=== PATIENT | female | born 1935 | race Hispanic/Latino ===

== ENCOUNTER 2017-06-11 15:40 | Inpatient (IN) | payer MEDICARE ==
--- NOTE | 2017-06-11 16:14 | ED PDOC ---
Arrival/HPI - General Chief Complaint: Weakness/Neurological Deficit Time Seen by Provider: 06/11/17 15:45 Historian: Patient - History of Present Illness Narrative History of Present Illness (Text): 06/11/17 16:16 An 81 year old female, whose past medical history includes dementia, kidney transplant, hypertension, DNI/DNR, was [facility] from [facility] to the emergency department for weakness, poor PO intake, right neck and shoulder pain. Patient is a poor historian. Information is obtained via [facility] records. Patient denies any fever, abdominal pain, chest pain or any other complaints at this time. Symptom Onset: Sudden Symptom Course: Unchanged Activities at Onset: Rest Context: Other (NH) Past Medical History - Provider Review Nursing Documentation Reviewed: Yes - Infectious Disease Hx of Infectious Diseases: None - Cardiac Hx Cardiac Disorders: Yes Hx Circulatory Problems: Yes (CHRONIC ISCHEMIC HEART DISEASE) Hx Hypertension: Yes Hx Peripheral Vascular Disease: Yes - Pulmonary Hx Respiratory Disorders: Yes Other/Comment: SHORTNESS OF BREATH - Neurological Hx Neurological Disorder: No - HEENT Hx HEENT Disorder: Yes Hx Cataracts: Yes - Renal Hx Renal Disorder: Yes (S/P KIDNEY TRANSPLANT) - Endocrine/Metabolic Hx Endocrine Disorders: No - Hematological/Oncological Hx Blood Disorders: No - Integumentary Hx Dermatological Disorder: No - Musculoskeletal/Rheumatological Hx Musculoskeletal Disorders: Yes Hx Gout: Yes Hx Osteoporosis: Yes - Gastrointestinal Hx Gastrointestinal Disorders: No - Genitourinary/Gynecological Hx Genitourinary Disorders: Yes Other/Comment: kidney transplant - Psychiatric Hx Psychophysiologic Disorder: No Hx Substance Use: No - Surgical History Hx Kidney Transplant: Yes - Anesthesia Hx Anesthesia: Yes Hx Anesthesia Reactions: No Hx Malignant Hyperthermia: No Family/Social History - Physician Review Nursing Documentation Reviewed: Yes Family/Social History: No Known Family HX Smoking Status: Never Smoked Hx Alcohol Use: No Hx Substance Use: No Allergies/Home Meds Allergies/Adverse Reactions: Allergies No Known Allergies Allergy (Verified 06/11/17 15:55) Home Medications: Home Meds Medication Instructions Recorded Confirmed Albuterol HFA [Ventolin HFA 90 2 puff INH Q6H PRN 02/15/17 06/11/17 mcg/actuation (8 g)] Ascorbic Acid [Vitamin C] 1 tab PO DAILY 02/15/17 06/11/17 Aspirin [Aspirin EC] 1 tab PO DAILY 02/15/17 06/11/17 Benzonatate [Tessalon Perles] 1 cap PO PRN PRN 02/15/17 06/11/17 Bethanechol [Urecholine] 1 tab PO DAILY 02/15/17 06/11/17 Cholecalciferol [Vitamin D 1000 IU] 1 cap PO BID 02/15/17 06/11/17 Cyclosporine 1 cap PO BID 02/15/17 06/11/17 Ferrous Sulfate [Feosol] 1 tab PO BID 02/15/17 06/11/17 Gabapentin [Neurontin] 2 cap PO HS 02/15/17 06/11/17 Ibandronate Sodium [Boniva] 1 tab PO DAILY 02/15/17 06/11/17 Losartan Potassium 1 tab PO DAILY 02/15/17 06/11/17 Magnesium Hydroxide [Milk Of 30 ml PO HS PRN 02/15/17 06/11/17 Magnesia] Magnesium Oxide [Mag-Ox] 1 tab PO DAILY 02/15/17 06/11/17 Metoprolol Tartrate 1 tab PO BID 02/15/17 06/11/17 Multivitamin/Iron/Folic Acid 1 tab PO DAILY 02/15/17 06/11/17 [Centrum Adults Tablet] Mycophenolate Mofetil [Cellcept] 1 tab PO BID 02/15/17 06/11/17 Ondansetron HCl [Zofran] 1 tab PO Q4H PRN 02/15/17 06/11/17 Oxycodone HCl 1 tab PO DAILY PRN 02/15/17 06/11/17 amLODIPine [Norvasc] 1 tab PO DAILY 02/15/17 06/11/17 predniSONE [predniSONE Tab] 1 tab PO DAILY 02/15/17 06/11/17 Review of Systems - Physician Review All systems were reviewed & negative as marked: Yes - Review of Systems Constitutional: Other (weakness). absent: Fevers Cardiovascular: absent: Chest Pain Gastrointestinal: Other (poor PO intake) Musculoskeletal: Neck Pain (right neck and shoulder pain), Other Physical Exam Vital Signs Reviewed: Yes Vital Signs Temp Pulse Resp BP Pulse Ox 06/11/17 20:10 82 20 142/80 98 06/11/17 18:46 97.6 F 86 20 182/107 H 98 06/11/17 15:51 98.9 F 90 24 173/96 H 98 Temperature: Afebrile Blood Pressure: Normal Pulse: Regular Respiratory Rate: Normal Appearance: Positive for: Well-Appearing, Non-Toxic, Comfortable Pain Distress: None Mental Status: Positive for: other (dementia) - Systems Exam Head: Present: Atraumatic, Normocephalic Pupils: Present: PERRL Extroacular Muscles: Present: EOMI Conjunctiva: Present: Normal Mouth: Present: Moist Mucous Membranes Neck: Present: Other (right paracervical tenderness) Respiratory/Chest: Present: Clear to Auscultation, Good Air Exchange. No: Respiratory Distress, Accessory Muscle Use Cardiovascular: Present: Regular Rate and Rhythm, Normal S1, S2. No: Murmurs Abdomen: Present: Normal Bowel Sounds. No: Tenderness, Distention, Peritoneal Signs Back: Present: Normal Inspection Upper Extremity: Present: Normal Inspection. No: Cyanosis, Edema Lower Extremity: Present: Normal Inspection. No: Edema Neurological: Present: GCS=15, CN II-XII Intact, Speech Normal Skin: Present: Warm, Dry, Normal Color. No: Rashes Psychiatric: Present: Alert, Normal Insight, Normal Concentration Medical Decision Making ED Course and Treatment: 06/11/17 16:11 Impression: An 81 year old female with weakness, poor PO intake, right neck and shoulder pain. Plan: -- EKG -- chest xray -- CT head -- CT cervical spine -- Radiology right shoulder -- Urinalysis -- labs -- Tylenol -- Reassess and disposition Progress Notes: 06/11/17 17:19 CT HEAD WITHOUT CONTRAST Creator : Higinio Alfaro IMPRESSION: No evidence of acute intracranial hemorrhage. No evidence of significant interval change in the brain since the previous study dated 05/27/2017. 06/11/17 17:22 CT Cervical Spine without contrast Creator : Higinio Alfaro IMPRESSION: No evidence of acute fracture or destructive bony lesion. Moderate degenerative changes. Mild grade 1 approximately 2 millimeter anterior spondylolisthesis of C4 relative to C5. Enlarged thyroid gland contains multiple nodules. 06/11/17 18:05 CHEST RADIOGRAPH, 1 VIEW Creator : Jeffry Boucher MD IMPRESSION: Left lower lobe infiltrate most likely acute infectious/ inflammatory process. 06/11/17 18:23 Radiographs of the Right Shoulder Creator : Amalia Kumar MD IMPRESSION: No evidence of acute fracture or dislocation. Moderate to severe degenerative changes. Rotator cuff calcified tendinitis. 06/11/17 20:25 EKG: Ordered, reviewed, and independently interpreted the EKG. Rate : 83 BPM Rhythm : NSR Interpretation : incomplete right bundle branch block, nonspecific ST/T wave changes Comparison : No previous EKG for comparison. - Lab Interpretations Lab Results: 06/11/17 16:35 06/11/17 16:35 Lab Results 06/11/17 16:35: Sodium 143, Potassium 4.2, Chloride 110 H, Carbon Dioxide 20 L, Anion Gap 17, BUN 21, Creatinine 0.9, Est GFR ( Amer) > 60, Est GFR (Non- Af Amer) 60, Random Glucose 85, Calcium 10.8 H, Magnesium 1.9, Total Bilirubin 1.0, AST 43 H, ALT 38, Alkaline Phosphatase 64, Lactate Dehydrogenase 598, Total Creatine Kinase 240 H, CK-MB (CK-2) 10.6 H, CK-MB (CK-2) % 4.4 H, Troponin I 0.02, Total Protein 6.9, Albumin 3.9, Globulin 3.1, Albumin/Globulin Ratio 1.3 06/11/17 16:35: PT 13.1 H, INR 1.15 H, APTT 30.6 06/11/17 16:35: WBC 14.9 H, RBC 3.87, Hgb 12.0, Hct 37.7, MCV 97.4, MCH 31.0, MCHC 31.8, RDW 14.4, Plt Count 322, MPV 10.8, Gran % 90.1 H, Lymph % (Auto) 4.4 L, Dent % (Auto) 5.3, Eos % (Auto) 0.1 L, Baso % (Auto) 0.1, Gran # 13.44 H, Lymph # (Auto) 0.7 L, Dent # (Auto) 0.8 H, Eos # (Auto) 0.0, Baso # (Auto) 0.02 , Neutrophils % (Manual) 95 H, Lymphocytes % (Manual) 2 L, Monocytes % (Manual) 3, Platelet Evaluation Normal I have reviewed the lab results: Yes - RAD Interpretation Radiology Orders: 06/11/17 16:04 CHEST ONE VIEW [RAD] Stat 06/11/17 16:05 CERVICAL SPINE W/O CONTRAST [CT] Stat HEAD W/O CONTRAST [CT] Stat 06/11/17 16:06 SHOULDER RIGHT [RAD] Stat - EKG Interpretation Interpreted by ED Physician: Yes Type: 12 lead EKG - Medication Orders Current Medication Orders: Amlodipine Besylate (Norvasc) 2.5 mg PO DAILY TIGIST Aspirin (Ecotrin) 325 mg PO DAILY TIGIST Clonidine HCl (Catapres) 0.1 mg PO BID TIGIST Cyclosporine (Sandimmune) 100 mg PO BID TIGIST Gabapentin (Neurontin) 200 mg PO HS TIGIST PRN Reason: Protocol Ceftriaxone Sodium (Rocephin 1 Gram Ivpb) 1 gm in 100 mls @ 100 mls/hr IVPB DAILY TIGIST PRN Reason: Protocol Azithromycin (Zithromax 500mg In Ns) 500 mg in 250 mls @ 167 mls/hr IVPB DAILY TIGIST PRN Reason: Protocol Levalbuterol HCl (Xopenex) 0.63 mg IH Q6H TIGIST Losartan Potassium (Cozaar) 25 mg PO DAILY TIGIST Magnesium Oxide (Mag-Ox) 400 mg PO DAILY TIGIST Metoprolol Tartrate (Lopressor) 25 mg PO BID TIGIST Discontinued Medications Acetaminophen (Tylenol 325mg Tab) 650 mg PO STAT STA Stop: 06/11/17 16:06 Last Admin: 06/11/17 16:41 Dose: 650 mg MAR Pain/Vitals Document 06/11/17 16:41 LA (Rec: 06/11/17 16:42 LA [id number]) Pain Reassessment Is This A Pain ReAssessment? No Sleep Is patient sleeping during reassessment? No Presence of Pain Presence of Pain Yes Pain Scale Used Pain Scale Used Numeric Location Pain Location Body Site Neck Vancomycin HCl 2 gm/ Sodium (Chloride) 500 mls @ 170 mls/hr IVPB ONCE ONE PRN Reason: Protocol Stop: 06/11/17 20:38 Last Admin: 06/11/17 19:47 Dose: 170 mls/hr eMAR Start Stop Document 06/11/17 19:47 LA (Rec: 06/11/17 19:47 LA [id number]) Intravenous Solution Start Date 06/11/17 Start Time 19:47 Piperacillin Sod/Tazobactam Sod (Zosyn 3.375 In Ns 100ml) 100 mls @ 200 mls/hr IVPB STAT STA PRN Reason: Protocol Stop: 06/11/17 18:11 Last Admin: 06/11/17 18:43 Dose: 200 mls/hr eMAR Start Stop Document 06/11/17 18:43 LA (Rec: 06/11/17 18:43 LA [id number]) Intravenous Solution Start Date 06/11/17 Start Time 18:43 Sodium Chloride (Sodium Chloride 0.9%) 1,000 mls @ 999 mls/hr IV .Q1H1M STA Stop: 06/11/17 19:15 Last Admin: 06/11/17 18:44 Dose: 999 mls/hr eMAR Start Stop Document 06/11/17 18:44 LA (Rec: 06/11/17 18:44 LA [id number]) Intravenous Solution Start Date 06/11/17 Start Time 18:44 Non-Formulary Medication (Mycophenolate Mofetil [Cellcept]) 1 tab PO BID TIGIST - Scribe Statement The provider has reviewed the documentation as recorded by the Ayesha Rios Provider Scribe Attestation: All medical record entries made by the Joeibenrrique were at my direction and personally dictated by me. I have reviewed the chart and agree that the record accurately reflects my personal performance of the history, physical exam, medical decision making, and the department course for this patient. I have also personally directed, reviewed, and agree with the discharge instructions and disposition. Disposition/Present on Arrival - Present on Arrival Any Indicators Present on Arrival: No History of DVT/PE: No History of Uncontrolled Diabetes: No Urinary Catheter: No History of Decub. Ulcer: No History Surgical Site Infection Following: None - Disposition Have Diagnosis and Disposition been Completed?: Yes Diagnosis: Pneumonia, Leukocytosis Disposition: HOSPITALIZED Disposition Time: 08:00 Condition: STABLE
[2017-06-11 16:58] LABS: BASO # 0.02 K/mm3 (0.0-2.0); BASO % 0.1 % (0.0-3.0); EOS % 0.1 % (1.5-5.0); GRAN # 13.44 (1.4-6.5); GRAN % 90.1 % (50.0-68.0); LYMPH # 0.7 (1.2-3.4); LYMPH % 4.4 % (22.0-35.0); MEAN CELL VOLUME 97.4 fl (80.0-105.0); MEAN CORPUSCULAR HGB CONC 31.8 g/dl (31.0-37.0); MEAN PLATELET VOLUME 10.8 fl (7.0-11.0); MONO # 0.8 (0.1-0.6); MONO % 5.3 % (1.0-6.0); PLATELET COUNT 322 10^3/uL (120.0-450.0); RBC 3.87 10^6/uL (3.5-6.1); RED CELL DISTRIBUTION WIDTH 14.4 % (11.5-14.5); WHITE BLOOD COUNT 14.9 10^3/ul (4.5-11.0)
[2017-06-11 16:59] LABS: ALB/GLOB RATIO 1.3 (1.1-1.8); ALBUMIN 3.9 g/dL (3.0-4.8); ALT/SGPT 38 U/L (7-56); AST/SGOT 43 U/L (14-36); BLOOD UREA NITROGEN 21 mg/dL (7-21); CALCIUM 10.8 mg/dL (8.4-10.5); GFR AFRICAN-AMERICAN > 60; GFR NON-AFRICAN AMERICAN 60; MAGNESIUM 1.9 mg/dL (1.7-2.2)
[2017-06-11 17:03] LABS: INR 1.15 (0.93-1.08); PARTIAL THROMBOPLASTIN TIME 30.6 Seconds (25.1-36.5); PROTHROMBIN TIME 13.1 SECONDS (9.4-12.5)
[2017-06-11 17:09] LABS: TROPONIN I 0.02 ng/mL
[2017-06-11 17:16] LABS: CK MB% 4.4 % (2.5-3.0); CK-MB 10.6 ng/mL (0.0-3.6)
[2017-06-11 17:24] LABS: LYMPHOCYTE 2 % (22.0-35.0); MONOCYTE 3 % (1.0-6.0); NEUTROPHIL 95 % (50.0-70.0); PLATELET ESTIMATE NORMAL (NORMAL)
--- NOTE | 2017-06-11 17:24 | CT ---
PROCEDURE: CT HEAD WITHOUT CONTRAST. HISTORY: weakness COMPARISON: Comparison is made with the previous study dated 05/27/2017. TECHNIQUE: Axial computed tomography images were obtained through the head/brain without intravenous contrast. Radiation dose: Total exam DLP = 2341.31 mGy-cm. This CT exam was performed using one or more of the following dose reduction techniques: Automated exposure control, adjustment of the mA and/or kV according to patient size, and/or use of iterative reconstruction technique. FINDINGS: HEMORRHAGE: No intracranial hemorrhage. BRAIN: No mass effect or edema. Mild atrophy is again noted. Moderate chronic microvascular white matter ischemic disease is also again noted. VENTRICLES: Unremarkable. No hydrocephalus. CALVARIUM: Unremarkable. PARANASAL SINUSES: Unremarkable as visualized. No significant inflammatory changes. MASTOID AIR CELLS: Unremarkable as visualized. No inflammatory changes. OTHER FINDINGS: None. IMPRESSION: No evidence of acute intracranial hemorrhage. No evidence of significant interval change in the brain since the previous study dated 05/27/2017.
[2017-06-11] MEDS ORDERED: Vancomycin 2 GM in Sodium Chloride 0.9% 500 ML IVPB ONE (17:42)
[2017-06-11] MEDS ORDERED: Piperacillin/Tazobact 3.375 gm 100 ML IVPB STA (17:42)
--- NOTE | 2017-06-11 17:42 | CT ---
PROCEDURE: CT Cervical Spine without contrast HISTORY: Neck pain COMPARISON: None available. TECHNIQUE: Axial computed tomography images were obtained of the cervical spine without the use of intravenous contrast. Coronal and sagittal reformatted images were created and reviewed. Radiation dose: Total exam DLP = 3 a 0.62 mGy-cm. This CT exam was performed using one or more of the following dose reduction techniques: Automated exposure control, adjustment of the mA and/or kV according to patient size, and/or use of iterative reconstruction technique. FINDINGS: VERTEBRAE: No fracture. Normal alignment. No destructive bony lesion. DISCS/SPINAL CANAL/NEURAL FORAMINA: Moderate degenerative changes are noted associated with mild central canal or neural foraminal stenosis. Moderate to severe narrowing of the disc is spaces noted at the mid and lower cervical spine. PARASPINAL SOFT TISSUES: The thyroid gland is enlarged. There is 2.5 centimeter heterogeneous nodule at the right thyroid lobe. There are bilateral heterogeneous nodules in the thyroid gland suggestive of multinodular goiter. OTHER FINDINGS: None. IMPRESSION: No evidence of acute fracture or destructive bony lesion. Moderate degenerative changes. Mild grade 1 approximately 2 millimeter anterior spondylolisthesis of C4 relative to C5. Enlarged thyroid gland contains multiple nodules.
--- NOTE | 2017-06-11 18:04 | RAD ---
PROCEDURE: CHEST RADIOGRAPH, 1 VIEW HISTORY: weakness COMPARISON: NONE. FINDINGS: LUNGS: Left lower lobe infiltrate, retrocardiac consolidative changes likely pneumonia. PLEURA: No pneumothorax or pleural fluid seen. CARDIOVASCULAR: Cardiomegaly. No evidence of acute, significant cardiovascular disease. OSSEOUS STRUCTURES: No significant abnormalities. VISUALIZED UPPER ABDOMEN: Normal. OTHER FINDINGS: None. IMPRESSION: Left lower lobe infiltrate most likely acute infectious/ inflammatory process.
[2017-06-11] MEDS ORDERED: Sodium Chloride 0.9% 1,000 ML IV STA (18:15)
--- NOTE | 2017-06-11 18:21 | RAD ---
PROCEDURE: Radiographs of the Right Shoulder HISTORY: pain COMPARISON: No prior. FINDINGS: BONES: No evidence of acute displaced fracture. JOINTS: Moderate to severe osteoarthritic changes noted at the AC joint and glenohumeral joint. There is narrowing of the subacromial space. SOFT TISSUES: There is a soft tissue calcification adjacent to the humeral head likely represent calcified tendinitis of the rotator cuff. OTHER FINDINGS: None. IMPRESSION: No evidence of acute fracture or dislocation. Moderate to severe degenerative changes. Rotator cuff calcified tendinitis.
[2017-06-11 23:24] VITALS: BMI 21.2
[2017-06-12] MEDS: Levalbuterol 0.63 MG/3 ML Inhal Soln UD IH SCH ×5 (02:06→20:27)
[2017-06-12 08:32] LABS: HEMOGLOBIN 11.2 g/dL (12.0-16.0); MEAN CELL VOLUME 97.3 fl (80.0-105.0); MEAN CORPUSCULAR HEMOGLOBIN 30.6 pg (25.0-35.0); MEAN CORPUSCULAR HGB CONC 31.5 g/dl (31.0-37.0); RBC 3.66 10^6/uL (3.5-6.1); RED CELL DISTRIBUTION WIDTH 13.9 % (11.5-14.5); WHITE BLOOD COUNT 8.1 10^3/ul (4.5-11.0)
[2017-06-12 09:04] LABS: ALB/GLOB RATIO 1.1 (1.1-1.8); ALBUMIN 3.1 g/dL (3.0-4.8); ALT/SGPT 30 U/L (7-56); AST/SGOT 38 U/L (14-36); BLOOD UREA NITROGEN 18 mg/dL (7-21); GFR AFRICAN-AMERICAN > 60; GFR NON-AFRICAN AMERICAN 60
[2017-06-12] MEDS: Magnesium Oxide 400 mg Tab UD PO SCH (09:16)
[2017-06-12] MEDS: Aspirin 325 mg EC Tablets PO SCH (09:16)
[2017-06-12] MEDS: cefTRIAXone 1 gm 1 GM/100 ML BAG IVPB SCH (09:17)
[2017-06-12] MEDS ORDERED: MYCOPHENOLATE MOFETIL PO SCH (10:00)
[2017-06-12] MEDS: Azithromycin 500MG/NS 250ml 500 MG/250 ML BAG IVPB SCH (10:16)
--- NOTE | 2017-06-12 14:41 | CARD ---
APPROVED REPORT EKG Measurement Heart [id number] <Conclusion> Normal sinus rhythm Incomplete right bundle branch block Left anterior fascicular block Voltage criteria for left ventricular hypertrophy Cannot rule out Septal infarct, age undetermined Abnormal ECG
[2017-06-12 21:12] LABS: URINE BILIRUBIN NEGATIVE (NEGATIVE); URINE BLOOD NEGATIVE (NEGATIVE); URINE GLUCOSE (UA) NEGATIVE (NEGATIVE); URINE LEUKOCYTE ESTERASE NEGATIVE Leu/uL (NEGATIVE); URINE NITRATE NEGATIVE (NEGATIVE); URINE PROTEIN NEGATIVE mg/dL (<30 mg/dL); URINE UROBILINOGEN 0.2 E.U./dL (<1 E.U./dL)
--- NOTE | 2017-06-12 21:14 | PN ---
DATE: SUBJECTIVE: I saw her resting comfortably, out of bed to chair. She is much better. She is talking better. She feels better. She is improving, more alert. MEDICATIONS: She is on Catapres, Cozaar, Ecotrin, Lopressor, magnesium, Neurontin, Norvasc, Rocephin, Sandimmune, Xopenex, Zanaflex, and Zithromax IV. PHYSICAL EXAMINATION: VITAL SIGNS: She has 99.5 temperature, now down to 98.9; pulse 79; 135/75 blood pressure; 20 respiratory rate; 95% O2 sat on room air. HEENT: Head is atraumatic, normocephalic, very much contracted and contorted body position. Mouth is dry. NECK: Supple. HEART: Regular rate. LUNGS: Decreased breath sounds bilaterally. Poor inspiration. ABDOMEN: Soft. EXTREMITIES: Contracted. No edema. LABORATORY DATA: She has 8.1 white count, down from 14.9; hemoglobin 11.2; hematocrit 35.6 with platelets 286. She has 144 sodium, potassium 3.8, BUN 18, creatinine 0.9, GFR is greater than 60, sugar is 72, calcium is 10. Total bilirubin is 0.7, AST is 38, ALT is 30, alkaline phosphatase 48. Troponin is 0.02. Total protein is 6. She has consults with Neurology and Pulmonology. We will check her labs tomorrow, see what physical therapy has to say. A few more days of IV antibiotics will clear the pneumonia and then we will get her back. I believe she is at the [facility]. We will continue with aggressive treatment and care on this young lady who has sepsis, left lower lobe pneumonia, hypertension, and weakness. Jeffry Carrasquillo DO
[2017-06-12 21:31] LABS: URINE APPEARANCE CLEAR (CLEAR); URINE COLOR YELLOW (YELLOW)
--- NOTE | 2017-06-12 23:13 | CON ---
DATE: 06/12/2017 PULMONARY CONSULTATION LOCATION: Room # 372 HISTORY OF PRESENT ILLNESS: Wendy Castelan is an 81-year-old female brought to the emergency room from the [facility] with poor oral intake and pain. She is unable to give any history. The [facility] records are noted on the chart. No other complaints. The patient denies any respiratory complaints whatsoever. There is no cough, chest pain, shortness of breath. In the emergency room, the chest x-ray showed a small left lower lobe infiltrate. The etiology of this is unclear. We do not know if this is old or new. PAST MEDICAL HISTORY: Include many problems including status post kidney transplant and dementia, hypertension. She is DNR/DNI. Past history in addition to above has ischemic heart disease, peripheral vascular disease, kidney transplant as stated above, neuromuscular disease, osteoporosis. SOCIAL HISTORY: There is no smoking history. ALLERGIES: NONE. HOME MEDICATION: Include albuterol alone. No additional pulmonary medications are noted. Prolong history of medications include ascorbic acid, aspirin, benzonatate, Urecholine, vitamin D, cyclosporine, Feosol, Neurontin, Boniva. losartan, metoprolol, Cellcept, Zofran, oxycodone, amlodipine and prednisone. REVIEW OF SYSTEMS: Cannot be obtained at this time due to the patient's inability to communicate. PHYSICAL EXAMINATION: GENERAL: She is comfortable in the chair, communicative. She denies any respiratory complaints. VITAL SIGNS: Show that she is afebrile, pulse 86, respiratory rate 16, blood pressure 140/80, pulse ox 98% on nasal cannula. HEENT: Normocephalic and atraumatic. Pupils PERRLA. EOMs full. Conjunctivae pink. NECK: Supple. No JVD. CHEST: Minimal rhonchi. No wheezes or rales. CARDIOVASCULAR: Regular rhythm, S1 and S2 without murmur, gallops or rubs.. ABDOMEN: Soft, bowel sounds are normoactive, without mass, guarding or rebound and no organomegaly. EXTREMITIES: Reveals no clubbing, cyanosis or edema. There is no Homans' sign NEUROLOGIC: No focal findings. SKIN: No rash or excoriations. UNABLE TO PERFORM A COMPLETE EXAMINATION DUE TO THE PATIENT'S LACK OF COOPERATION. The patient was admitted to the floor for further evaluation and treatment. Chest x-ray shows left lower lobe infiltrate, acute versus chronic inflammatory ?. This may be due to acute infection, but this does not appears to be so, may be due to immunocompromised state, due to immunosuppressive status post renal transplant. It may be chronic. Old films are necessary for comparison. EKG sinus rhythm non specific ST-T wave changes. LABORATORY [place]: [place] [id number], hemoglobin 12, hematocrit 37.7, platelet count 322, sodium 143 potassium 4.2. chloride 110, CO2 20, BUN 21, creatinine 0.9, blood sugar 85, calcium 10.8. CLINICAL IMPRESSION: 1. Immunocompromised state. 2. Left Infiltrate on chest x-ray. Chronic versus new ?. No evidence of acute pulmonary infection. We must try to obtain old chest x-rays performed to evaluate whether this is new or old (acute versus chronic). 3. Bronchospasm in the past, questionable COPD, questionable asthma. PLAN: 1. Continue bronchodilators as started. Try to obtain old x-ray to suggest infectious disease to evaluate. Sed rate will be ordered to look for acute signs of inflammation. We will discuss with the PND, infectious disease, and other consultants as they are called. The patient has already been started on erythromycin and ceftriaxone. She is on Xopenex already and on oral corticosteroids, no need to do further intervention at this time. We will follow closely with you and discuss once the other physicians have seen this patient. Nathanael Lockhart MD
[2017-06-13] MEDS: Levalbuterol 0.63 MG/3 ML Inhal Soln UD IH SCH ×4 (02:40→20:12)
[2017-06-13 08:23] LABS: HEMOGLOBIN 11.7 g/dL (12.0-16.0); MEAN CELL VOLUME 97.1 fl (80.0-105.0); MEAN CORPUSCULAR HEMOGLOBIN 30.5 pg (25.0-35.0); MEAN CORPUSCULAR HGB CONC 31.5 g/dl (31.0-37.0); MEAN PLATELET VOLUME 10.7 fl (7.0-11.0); RBC 3.83 10^6/uL (3.5-6.1); RED CELL DISTRIBUTION WIDTH 13.9 % (11.5-14.5); WHITE BLOOD COUNT 9.9 10^3/ul (4.5-11.0)
[2017-06-13 08:59] LABS: ALB/GLOB RATIO 1.1 (1.1-1.8); ALBUMIN 3.2 g/dL (3.0-4.8); ALT/SGPT 40 U/L (7-56); AST/SGOT 34 U/L (14-36); BLOOD UREA NITROGEN 19 mg/dL (7-21); CALCIUM 10.1 mg/dL (8.4-10.5); GFR AFRICAN-AMERICAN > 60; GFR NON-AFRICAN AMERICAN 60
[2017-06-13] MEDS: Aspirin 325 mg EC Tablets PO SCH (10:05)
[2017-06-13] MEDS: cefTRIAXone 1 gm 1 GM/100 ML BAG IVPB SCH (10:05)
[2017-06-13] MEDS: Azithromycin 500MG/NS 250ml 500 MG/250 ML BAG IVPB SCH (10:06)
[2017-06-13] MEDS: Magnesium Oxide 400 mg Tab UD PO SCH (10:08)
--- NOTE | 2017-06-13 11:37 | PN ---
DATE: 06/13/2017 PULMONARY PROGRESS NOTE SUBJECTIVE: The patient's clinical status is unchanged. The patient is resting comfortably in bed. No respiratory distress is noted. PHYSICAL EXAMINATION: GENERAL: The patient is comfortable. VITAL SIGNS: Stable, afebrile, blood pressure 130/70, heart rate 70, respiratory rate 16 to 18. NECK: Supple. No JVD. No lymphadenopathy. RESPIRATORY: Breath sounds, minimal rhonchi. ABDOMEN: Soft. Bowel sounds normoactive without mass, guarding or rebound. No organomegaly. EXTREMITIES: Reveal no clubbing, cyanosis or edema. NEUROLOGIC: No changes noted. LABORATORY DATA: No new laboratory studies are available this morning. CLINICAL IMPRESSION: 1. Immunocompromised state. 2. Left infiltrate on chest x-ray, chronic versus new? (I was unable to obtain old films with which to compare. I will need to discuss with primary medical doctor and Oncology. 3. Bronchospasm, resolved. PLAN: Followup chest x-ray in 1 to 2 days. Discuss with PMD. Suggest Infectious Disease to see this patient. As yet, there are no notes on the chart since mine of yesterday. I would do a chest x-ray in the morning to make sure that there is no exacerbation of infiltrates. We will be happy to follow with you. I would discuss this case with Dr. Damon, who will take over in the morning. He will monitor closely and decide whether further intervention is required. Thank you for the opportunity to see this patient and we will follow closely with you. Nathanael Lockhart MD
--- NOTE | 2017-06-14 03:18 | CON ---
DATE: HISTORY OF PRESENT ILLNESS: This is an 81-year-old white female with a past medical history of dementia, kidney transplant, and hypertension, came from the long term. The patient has a poor intake, poor historian, keeps the eyes closed, but follows simple commands. PAST MEDICAL HISTORY: As above. Dementia, kidney transplant, hypertension. ALLERGIES: NO KNOWN DRUG ALLERGY. REVIEW OF SYSTEMS: A 10-point review of system was negative. PHYSICAL EXAMINATION: HEENT: Normocephalic and atraumatic. NECK: Supple. NEUROLOGIC: Awake, not oriented to the place, still thinks she is at home. Keeps the right eye closed. No facial asymmetry. Tongue midline. Spontaneous movement of the upper extremities noted with limited movement of the lower extremities. Deep tendon reflexes 1+. Both plantars are downgoing. Right foot drop. Cerebellar gait deferred. IMPRESSION AND PLAN: Encephalopathy superimposed on dementia, kidney transplant. CAT scan of the head was done, which was reported negative, and CAT scan of the cervical spine shows spondylolisthesis. Continue present management. We will follow up. Rolando Soto MD
[2017-06-14 06:31] LABS: HEMOGLOBIN 13.1 g/dL (12.0-16.0); MEAN CELL VOLUME 95.8 fl (80.0-105.0); MEAN CORPUSCULAR HEMOGLOBIN 30.9 pg (25.0-35.0); MEAN CORPUSCULAR HGB CONC 32.3 g/dl (31.0-37.0); MEAN PLATELET VOLUME 10.7 fl (7.0-11.0); RBC 4.24 10^6/uL (3.5-6.1); RED CELL DISTRIBUTION WIDTH 13.8 % (11.5-14.5); WHITE BLOOD COUNT 11.3 10^3/ul (4.5-11.0)
[2017-06-14 06:41] LABS: ALB/GLOB RATIO 1.1 (1.1-1.8); ALBUMIN 3.4 g/dL (3.0-4.8); ALT/SGPT 36 U/L (7-56); AST/SGOT 29 U/L (14-36); BLOOD UREA NITROGEN 16 mg/dL (7-21); CALCIUM 10.3 mg/dL (8.4-10.5); GFR AFRICAN-AMERICAN > 60; GFR NON-AFRICAN AMERICAN > 60
[2017-06-14] MEDS: Levalbuterol 0.63 MG/3 ML Inhal Soln UD IH SCH ×3 (08:27→21:13)
--- NOTE | 2017-06-14 10:25 | PN ---
DATE: 06/14/2017 PULMONARY NOTE SUBJECTIVE: The patient appears comfortable this morning. She is not short of breath at rest. PHYSICAL EXAMINATION VITAL SIGNS: Temperature 98.5, pulse 82, respirations 18/20, blood pressure 165/90. Oxygen saturation on room air is 94%. HEENT: Normocephalic, atraumatic. No JVD. CARDIOVASCULAR: Positive S1, S2. No S3 gallop. LUNGS: Crackles noted at the left base. Minimal rhonchi. No wheezing. EXTREMITIES: Positive for mild edema. No cyanosis, no clubbing. Calves are nontender to palpation. GI: Abdomen is soft, nontender and nondistended. Bowel sounds are positive. SKIN: No acute rash. NEUROLOGIC: Limited at the present time. PERTINENT LABORATORY DATA: Chest x-ray was done early this morning and reviewed. The left lower lobe infiltrate appears less dense compared to the film of 06/11/2017. IMPRESSION: 1. Left lower lobe pneumonia. 2. Mild bronchospasm. 3. Hypertension. 4. Dementia. 5. Kidney transplant in the past. PLAN: The patient appears comfortable this morning. She is not short of breath at rest. She does state to feeling much better overall. On physical exam, there is no significant bronchospasm noted. I will continue the current nebulizer treatments for now. I did review the last chest x-ray done - this morning. The left lower lobe infiltrate is improved and appears less dense. I would continue the current antibiotic therapy for now. The temperatures have now fully resolved. I will also order aspiration precautions. Clinical status of the patient is certainly improved - compared to the initial presentation. However, the patient's overall status/prognosis does remain guarded. I will discuss the above with Dr. Carrasquillo. Peter Damon MD CODY
--- NOTE | 2017-06-14 10:38 | PN ---
DATE: 06/13/2017 SUBJECTIVE: I saw her sitting in bed, uncomfortable. She is having neck discomfort and some shortness of breath. She is on oxygen, not that hungry this morning. OBJECTIVE VITAL SIGNS: She has 97.5 temperature, 70 pulse, 170/80 blood pressure, 18 respiratory rate, 97% O2 sat on 2 liters. HEENT: Head is atraumatic, normocephalic. NECK: Painful. She is in an increased kyphotic neck with her face looking at her chest. HEART: Regular rate. LUNGS: Decreased breath sounds bilaterally. ABDOMEN: Soft. EXTREMITIES: Contracted, no edema. She is on Catapres, Cozaar, Ecotrin, Lopressor, magnesium oxide, Neurontin, Norvasc, Rocephin, , Xopenex, Zanaflex and Zithromax. DATA: She has a 9.9 white count, 11.7 hemoglobin, 37.2 hematocrit, 290,000 platelets. Sodium 142, potassium 3.8, BUN is 19, creatinine 0.9. GFR is greater than 60. Sugar is 85. Calcium is 7.1, total bili is 0.6, AST is 34, ALT is 40, alkaline phosphatase 66, total protein 6.1. No growth. I am waiting for Neurology to see her for his opinion of her neck. I will continue with aggressive pulmonary care and if everything goes well, discharge her back to tomorrow. Continue aggressive treatment and care and have to see her for severe neck pain, pneumonia, hypertension and she is quite weak. Jeffry Carrasquillo DO MTDD
--- NOTE | 2017-06-14 10:43 | RAD ---
HISTORY: BELOW COMPARISON: 06/11/2017 FINDINGS: LUNGS: No change in left sided infiltrate PLEURA: No significant pleural effusion identified, no pneumothorax apparent. CARDIOVASCULAR: Mild cardiomegaly OSSEOUS STRUCTURES: No significant abnormalities. VISUALIZED UPPER ABDOMEN: Normal. OTHER FINDINGS: None. IMPRESSION: No change in left lower lobe infiltrate
[2017-06-14] MEDS: Aspirin 325 mg EC Tablets PO SCH (11:41)
[2017-06-14] MEDS: Magnesium Oxide 400 mg Tab UD PO SCH (11:42)
[2017-06-14] MEDS: Azithromycin 500MG/NS 250ml 500 MG/250 ML BAG IVPB SCH (11:43)
--- NOTE | 2017-06-14 12:54 | PN ---
DATE: SUBJECTIVE: I saw her sitting in bed. She is nauseous this morning, could not eat well, but did not throw up. She is taking the liquids. She also wants to get out of bed to chair. I will try and get that arranged, talking better. She is on Catapres, Cozaar, Ecotrin, Lopressor, magnesium oxide, Neurontin, Norvasc, Rocephin IV, Sandimmune, Xopenex, Zanaflex, Zithromax and Zofran for the nauseousness. PHYSICAL EXAMINATION: VITAL SIGNS: She has a 98.5 temp, 82 pulse, 165/90 blood pressure, 20 respiratory rate, 94% O2 sat on room air. HEENT: Head is atraumatic, normocephalic. NECK: Increased kyphotic position. HEART: Regular rate. LUNGS: Decreased breath sounds bilaterally. ABDOMEN: Soft. Positive bowel sounds. EXTREMITIES: Mildly contracted. No edema. We are trying to get her out of bed to chair. LABORATORY DATA: She has 11.3 white count, it went up a little bit; 30.1 hemoglobin, 40.6 hematocrit with 285 platelets. 142 sodium, potassium 4.4, BUN 16, creatinine 0.8, GFR is greater than 60, sugar is 80, calcium is 10.3, total bili is 0.8, AST is 29, ALT is 36, alk phos 77, total protein 6.6. She is going for a chest x-ray today, waiting for the results. She is on IV antibiotics. She is being seen by Pulmonary and Neurology. Neurology felt it was encephalopathy. Hopefully, the chest x-ray will improve. We will give her some Zofran for the nauseousness. get her out of bed to chair. If we get okay from Pulmonary, we will transfer her back. Thank you very much. Jeffry Carrasquillo DO MTDMariela
[2017-06-14] MEDS ORDERED: Naproxen 550 mg Tab PO SCH (13:30)
--- NOTE | 2017-06-14 14:12 | EEG ---
DATE: 06/14/2017 CONDITION OF THE RECORDING: Drowsy. DIAGNOSIS: Altered mental status. MEDICATION: Reviewed by nurse's reconciliation sheet. INTERPRETATION: This is a 16-channel International EEG. The background activity of this tracing was composed of 6 to 7 cycles per second. There was small amount of beta activity of 16 to 20 cycles per second seen during this tracing. There was increased amount of theta activity of 5 to 7 cycles per second seen during this tracing. Drowsiness was characterized by mixed beta and theta activities. The sleep was characterized by vertex transient waves, sleep spindles, and bilateral slowing. Photic stimulation showed no changes in the tracing. No paroxysmal activity is noted in this recording. CONCLUSION: This is an abnormal EEG due to presence of mild diffuse slowing consistent with mild bilateral cerebral dysfunction. No evidence of any epileptiform activity. Please clinically correlate. Rachid Soto MD
[2017-06-14] MEDS ORDERED: Lidocaine 5% Patch TD PRN (14:15)
[2017-06-14] MEDS: cefTRIAXone 1 gm 1 GM/100 ML BAG IVPB SCH (14:18)
--- NOTE | 2017-06-14 14:22 | CP.PCM.PN ---
Addendum entered and electronically signed by Deborah Harris DO 06/14/17 14:49 : EEG: mild bilateral cerebral dysfunction. no seizure Original Note: <Deborah Harris - Last Filed: 06/14/17 14:46> Subjective - Date & Time of Evaluation Date of Evaluation: 06/14/17 Time of Evaluation: 09:00 - Subjective Subjective: Neurology PGY-[address] Soto Pt states that she still has R neck pain and nausea. She has decreased appeptite because of the nausea Objective - Vital Signs/Intake and Output Vital Signs (last 24 hours): Temp Pulse Resp BP Pulse Ox 98.5 F 72 20 165/90 H 94 L 06/14/17 06:00 06/14/17 11:42 06/14/17 06:00 06/14/17 11:42 06/14/17 06:00 Intake and Output: 06/14/17 06/14/17 06:59 18:59 Intake Total 120 Balance 120 - Medications Medications: Current Medications Amlodipine Besylate (Norvasc) 2.5 mg PO DAILY [facility] Last Admin: 06/14/17 11:42 Dose: 2.5 mg Aspirin (Ecotrin) 325 mg PO DAILY [facility] Last Admin: 06/14/17 11:41 Dose: 325 mg Clonidine HCl (Catapres) 0.1 mg PO BID [facility] Last Admin: 06/14/17 11:41 Dose: 0.1 mg Cyclosporine (Sandimmune) 100 mg PO BID [facility] Last Admin: 06/14/17 11:43 Dose: 100 mg Gabapentin (Neurontin) 200 mg PO HS [facility] PRN Reason: Protocol Last Admin: 06/13/17 22:13 Dose: 200 mg Ceftriaxone Sodium (Rocephin 1 Gram Ivpb) 1 gm in 100 mls @ 100 mls/hr IVPB DAILY [facility] PRN Reason: Protocol Stop: 06/16/17 10:59 Last Admin: 06/14/17 14:18 Dose: 100 mls/hr Azithromycin (Zithromax 500mg In Ns) 500 mg in 250 mls @ 167 mls/hr IVPB DAILY [facility] PRN Reason: Protocol Last Admin: 06/14/17 11:43 Dose: 167 mls/hr Levalbuterol HCl (Xopenex) 0.63 mg IH Q6H [facility] Last Admin: 06/14/17 13:28 Dose: 0.63 mg Lidocaine (Lidoderm) 1 ea TD DAILY PRN PRN Reason: Pain, moderate (4-7) Losartan Potassium (Cozaar) 25 mg PO DAILY [facility] Last Admin: 06/14/17 11:42 Dose: 25 mg Magnesium Oxide (Mag-Ox) 400 mg PO DAILY [facility] Last Admin: 06/14/17 11:42 Dose: 400 mg Metoprolol Tartrate (Lopressor) 25 mg PO BID [facility] Last Admin: 06/14/17 11:41 Dose: 25 mg Naproxen (Anaprox Ds) 550 mg PO BID [facility] Last Admin: 06/14/17 13:36 Dose: 550 mg Ondansetron HCl (Zofran Inj) 4 mg IVP Q6H PRN PRN Reason: Nausea/Vomiting Last Admin: 06/14/17 09:49 Dose: 4 mg Tizanidine HCl (Zanaflex) 4 mg PO BID [facility] Last Admin: 06/14/17 11:41 Dose: 4 mg - Labs Labs: 06/14/17 05:45 06/14/17 05:45 PT 13.1 SECONDS (9.4-12.5) H 06/11/17 16:35 INR 1.15 (0.93-1.08) H 06/11/17 16:35 APTT 30.6 Seconds (25.1-36.5) 06/11/17 16:35 - Constitutional Appears: No Acute Distress - Head Exam Head Exam: ATRAUMATIC, NORMAL INSPECTION, NORMOCEPHALIC Additional comments: pt head is rotated to left - Eye Exam Eye Exam: EOMI, Normal appearance, PERRL. absent: Scleral icterus Pupil Exam: NORMAL ACCOMODATION - ENT Exam ENT Exam: Mucous Membranes Moist - Respiratory Exam Respiratory Exam: Clear to Ausculation Bilateral, NORMAL BREATHING PATTERN - Cardiovascular Exam Cardiovascular Exam: REGULAR RHYTHM, +S1, +S2. absent: Murmur - GI/Abdominal Exam GI & Abdominal Exam: Soft. absent: Guarding, Rigid, Tenderness - Extremities Exam Extremities Exam: absent: Calf Tenderness, Pedal Edema - Neurological Exam Neurological Exam: Alert, Awake Additional comments: Awake, oriented to place this AM, not to time Head rotated to L for pain Spontanous moving LUE, LE b/l. RUE motion limited by pain Motor: 3/5 for upper extremities, 3+/5 for lower extremiteis. R foot drop. neg babinski sensory: intact DTR: 1+ Assessment and Plan - Assessment and Plan (Free Text) Plan: Ms Castelan, 81F, from [facility] with PMH dementia, kidney transplant, and HTN c/o weakness, decreased PO intact, neck and shoulder pain. Neurology was consulted for neck weakness. Neck pain is worse on R and pt cannot move her R arm due to pain. CT head showed no acute intracranital hemorrhage, mild atropy, and chronic microvascular white matter ischemic disease. R shoulder x-ray showed severe degenerative changes and rotator cuff calcified tendinitis. Cervical CT showed moderate degenerative changes, mild grade 1 (2mm) anterior spondylolothesis of C4 on C5. Enlarged thyroid with multiple nodules. Torticollis - Continue gabapentin 200 HS - Zanaflex 4 BID - Naproxen 550 BID PRN - Add Lidoderm patch - neck brace as needed -____Pending TSH, Free T4___ to r/o hyperthyroid cause of torticollis s/r/d/w Dr. Soto <Rachid Soto - Last Filed: 06/14/17 14:54> Objective - Vital Signs/Intake and Output Vital Signs (last 24 hours): Temp Pulse Resp BP Pulse Ox 98.5 F 72 20 165/90 H 94 L 06/14/17 06:00 06/14/17 11:42 06/14/17 06:00 06/14/17 11:42 06/14/17 06:00 Intake and Output: 06/14/17 06/14/17 06:59 18:59 Intake Total 120 Balance 120 - Medications Medications: Current Medications Amlodipine Besylate (Norvasc) 2.5 mg PO DAILY [facility] Last Admin: 06/14/17 11:42 Dose: 2.5 mg Aspirin (Ecotrin) 325 mg PO DAILY [facility] Last Admin: 06/14/17 11:41 Dose: 325 mg Clonidine HCl (Catapres) 0.1 mg PO BID [facility] Last Admin: 06/14/17 11:41 Dose: 0.1 mg Cyclosporine (Sandimmune) 100 mg PO BID [facility] Last Admin: 06/14/17 11:43 Dose: 100 mg Gabapentin (Neurontin) 200 mg PO HS [facility] PRN Reason: Protocol Last Admin: 06/13/17 22:13 Dose: 200 mg Ceftriaxone Sodium (Rocephin 1 Gram Ivpb) 1 gm in 100 mls @ 100 mls/hr IVPB DAILY [facility] PRN Reason: Protocol Stop: 06/16/17 10:59 Last Admin: 06/14/17 14:18 Dose: 100 mls/hr Azithromycin (Zithromax 500mg In Ns) 500 mg in 250 mls @ 167 mls/hr IVPB DAILY [facility] PRN Reason: Protocol Last Admin: 06/14/17 11:43 Dose: 167 mls/hr Levalbuterol HCl (Xopenex) 0.63 mg IH Q6H [facility] Last Admin: 06/14/17 13:28 Dose: 0.63 mg Lidocaine (Lidoderm) 1 ea TD DAILY PRN PRN Reason: Pain, moderate (4-7) Losartan Potassium (Cozaar) 25 mg PO DAILY [facility] Last Admin: 06/14/17 11:42 Dose: 25 mg Magnesium Oxide (Mag-Ox) 400 mg PO DAILY [facility] Last Admin: 06/14/17 11:42 Dose: 400 mg Metoprolol Tartrate (Lopressor) 25 mg PO BID [facility] Last Admin: 06/14/17 11:41 Dose: 25 mg Naproxen (Anaprox Ds) 550 mg PO BID PRN PRN Reason: Pain, moderate (4-7) Ondansetron HCl (Zofran Inj) 4 mg IVP Q6H PRN PRN Reason: Nausea/Vomiting Last Admin: 06/14/17 09:49 Dose: 4 mg Tizanidine HCl (Zanaflex) 4 mg PO BID [facility] Last Admin: 06/14/17 11:41 Dose: 4 mg - Labs Labs: 06/14/17 05:45 06/14/17 05:45 PT 13.1 SECONDS (9.4-12.5) H 06/11/17 16:35 INR 1.15 (0.93-1.08) H 06/11/17 16:35 APTT 30.6 Seconds (25.1-36.5) 06/11/17 16:35 Attending/Attestation - Attestation I have personally seen and examined this patient.: Yes I have fully participated in the care of the patient.: Yes I have reviewed all pertinent clinical information, including history, physical exam and plan: Yes
[2017-06-14] MEDS ORDERED: Naproxen 550 mg Tab PO PRN (14:40)
[2017-06-15] MEDS: Levalbuterol 0.63 MG/3 ML Inhal Soln UD IH SCH ×4 (01:31→20:10)
[2017-06-15 07:50] LABS: FREE T4 1.74 ng/dL (0.78-2.19)
--- NOTE | 2017-06-15 10:02 | PN ---
DATE: 06/15/2017 PULMONARY NOTE SUBJECTIVE: The patient appears comfortable this morning. She is not short of breath at rest. PHYSICAL EXAMINATION: VITAL SIGNS: Temperature is 97.3, pulse 57, respiratory rate 18/20, blood pressure 134/70. Oxygen saturation on room air is 93-95%. HEENT: Normocephalic, atraumatic. No JVD. CARDIOVASCULAR: Positive S1, S2. No S3 gallop. LUNGS: Crackles noted at the left base. Minimal/less rhonchi. No wheezing. EXTREMITIES: Positive for mild edema. No cyanosis. No clubbing. Calves are nontender to palpation. GI: Abdomen is soft, nontender and nondistended. Bowel sounds are positive. SKIN: No acute rash. NEUROLOGIC: Limited at the present time. IMPRESSION: 1. Left lower lobe pneumonia. 2. Mild bronchospasm. 3. Hypertension. 4. Dementia. 5. Kidney transplant in the past. PLAN: The patient appears comfortable this morning. She is not short of breath at rest. She does state to feeling much better overall. On physical exam, there is certainly less bronchospasm noted. In addition, there is less alveolar-arterial gradient. I will continue with the current nebulizer treatments and aspiration precautions for now. The patient remains on antibiotic therapy. The temperatures have fully resolved. Repeat a.m. labs are pending. Clinical status of the patient is certainly improved - compared to the initial presentation. However, the future status/prognosis for this chronically ill elderly patient does remain guarded. I will discuss the above with Dr. Carrasquillo. Peter Damon MD CODY
--- NOTE | 2017-06-15 10:43 | CP.PCM.PN ---
<Deborah Harris - Last Filed: 06/15/17 10:44> Subjective - Date & Time of Evaluation Date of Evaluation: 06/15/17 Time of Evaluation: 10:40 - Subjective Subjective: Neurology PGY-[address] Soto Pt states that neck pain subsided from yesterday;s 02/16 to 11/16 today. She is able to move her R arm more than yesterday Objective - Vital Signs/Intake and Output Vital Signs (last 24 hours): Temp Pulse Resp BP Pulse Ox 97.3 F L 57 L 21 134/70 93 L 06/15/17 06:00 06/15/17 06:00 06/15/17 06:00 06/15/17 06:00 06/15/17 06:00 Intake and Output: 06/15/17 06/15/17 06:59 18:59 Intake Total 480 0 Output Total 700 0 Balance -220 0 - Medications Medications: Current Medications Amlodipine Besylate (Norvasc) 2.5 mg PO DAILY [facility] Last Admin: 06/14/17 11:42 Dose: 2.5 mg Aspirin (Ecotrin) 325 mg PO DAILY [facility] Last Admin: 06/14/17 11:41 Dose: 325 mg Clonidine HCl (Catapres) 0.1 mg PO BID [facility] Last Admin: 06/14/17 19:04 Dose: 0.1 mg Cyclosporine (Sandimmune) 100 mg PO BID [facility] Last Admin: 06/14/17 19:04 Dose: 100 mg Gabapentin (Neurontin) 200 mg PO HS [facility] PRN Reason: Protocol Last Admin: 06/14/17 22:00 Dose: 200 mg Ceftriaxone Sodium (Rocephin 1 Gram Ivpb) 1 gm in 100 mls @ 100 mls/hr IVPB DAILY [facility] PRN Reason: Protocol Stop: 06/16/17 10:59 Last Admin: 06/14/17 14:18 Dose: 100 mls/hr Azithromycin (Zithromax 500mg In Ns) 500 mg in 250 mls @ 167 mls/hr IVPB DAILY [facility] PRN Reason: Protocol Last Admin: 06/14/17 11:43 Dose: 167 mls/hr Levalbuterol HCl (Xopenex) 0.63 mg IH Q6H [facility] Last Admin: 06/15/17 07:42 Dose: 0.63 mg Lidocaine (Lidoderm) 1 ea TD DAILY PRN PRN Reason: Pain, moderate (4-7) Last Admin: 06/14/17 19:04 Dose: 1 ea Losartan Potassium (Cozaar) 25 mg PO DAILY [facility] Last Admin: 06/14/17 11:42 Dose: 25 mg Magnesium Oxide (Mag-Ox) 400 mg PO DAILY [facility] Last Admin: 06/14/17 11:42 Dose: 400 mg Metoprolol Tartrate (Lopressor) 25 mg PO BID [facility] Last Admin: 06/14/17 19:05 Dose: 25 mg Naproxen (Anaprox Ds) 550 mg PO BID PRN PRN Reason: Pain, moderate (4-7) Ondansetron HCl (Zofran Inj) 4 mg IVP Q6H PRN PRN Reason: Nausea/Vomiting Last Admin: 06/14/17 09:49 Dose: 4 mg Tizanidine HCl (Zanaflex) 4 mg PO BID [facility] Last Admin: 06/14/17 19:05 Dose: 4 mg - Labs Labs: 06/14/17 05:45 06/14/17 05:45 PT 13.1 SECONDS (9.4-12.5) H 06/11/17 16:35 INR 1.15 (0.93-1.08) H 06/11/17 16:35 APTT 30.6 Seconds (25.1-36.5) 06/11/17 16:35 - Constitutional Appears: No Acute Distress - Head Exam Head Exam: ATRAUMATIC, NORMAL INSPECTION, NORMOCEPHALIC - Eye Exam Eye Exam: EOMI, Normal appearance, PERRL Pupil Exam: NORMAL ACCOMODATION - ENT Exam ENT Exam: Mucous Membranes Moist - Neck Exam Additional comments: supple. Neck rotated L - Respiratory Exam Respiratory Exam: Clear to Ausculation Bilateral, Rhonchi, NORMAL BREATHING PATTERN - Cardiovascular Exam Cardiovascular Exam: REGULAR RHYTHM, +S1, +S2. absent: Murmur - Neurological Exam Neurological Exam: Alert, Awake Additional comments: Awake, oriented to place, not to time Head rotated to L for pain Spontanous moving all extremities. RUE motion limited by pain Motor: 3/5 RUE due to pain; 4/5 for LUE and lower extremiteis. R foot drop. neg babinski sensory: intact DTR: 1+ Assessment and Plan - Assessment and Plan (Free Text) Plan: Ms Castelan, 81F, from [facility] with PMH dementia, kidney transplant, and HTN c/o weakness, decreased PO intact, neck and shoulder pain. Neurology was consulted for neck weakness. Neck pain is worse on R and pt cannot move her R arm due to pain. CT head showed no acute intracranital hemorrhage, mild atropy, and chronic microvascular white matter ischemic disease. R shoulder x-ray showed severe degenerative changes and rotator cuff calcified tendinitis. Cervical CT showed moderate degenerative changes, mild grade 1 (2mm) anterior spondylolothesis of C4 on C5. Enlarged thyroid with multiple nodules. 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 - possible endocrinology consult to r/o cancer? s/r/d/w Dr. Soto <Rachid Soto - Last Filed: 06/15/17 14:49> Objective - Vital Signs/Intake and Output Vital Signs (last 24 hours): Temp Pulse Resp BP Pulse Ox 98 F 94 H 18 137/109 H 96 06/15/17 12:00 06/15/17 12:01 06/15/17 12:00 06/15/17 12:01 06/15/17 12:00 Intake and Output: 06/15/17 06/15/17 06:59 18:59 Intake Total 480 0 Output Total 700 0 Balance -220 0 - Medications Medications: Current Medications Amlodipine Besylate (Norvasc) 2.5 mg PO DAILY [facility] Last Admin: 06/15/17 12:01 Dose: 2.5 mg Aspirin (Ecotrin) 325 mg PO DAILY [facility] Last Admin: 06/15/17 12:01 Dose: 325 mg Clonidine HCl (Catapres) 0.1 mg PO BID [facility] Last Admin: 06/15/17 12:00 Dose: 0.1 mg Cyclosporine (Sandimmune) 100 mg PO BID [facility] Last Admin: 06/15/17 12:00 Dose: 100 mg Gabapentin (Neurontin) 300 mg PO HS [facility] PRN Reason: Protocol Ceftriaxone Sodium (Rocephin 1 Gram Ivpb) 1 gm in 100 mls @ 100 mls/hr IVPB DAILY [facility] PRN Reason: Protocol Stop: 06/16/17 10:59 Last Admin: 06/15/17 12:02 Dose: 100 mls/hr Azithromycin (Zithromax 500mg In Ns) 500 mg in 250 mls @ 167 mls/hr IVPB DAILY [facility] PRN Reason: Protocol Last Admin: 06/15/17 12:03 Dose: 167 mls/hr Levalbuterol HCl (Xopenex) 0.63 mg IH Q6H [facility] Last Admin: 06/15/17 13:49 Dose: 0.63 mg Lidocaine (Lidoderm) 1 ea TD DAILY PRN PRN Reason: Pain, moderate (4-7) Last Admin: 06/14/17 19:04 Dose: 1 ea Losartan Potassium (Cozaar) 25 mg PO DAILY [facility] Last Admin: 06/15/17 12:01 Dose: 25 mg Magnesium Oxide (Mag-Ox) 400 mg PO DAILY [facility] Last Admin: 06/15/17 12:01 Dose: 400 mg Metoprolol Tartrate (Lopressor) 25 mg PO BID [facility] Last Admin: 06/15/17 12:01 Dose: 25 mg Naproxen (Anaprox Ds) 550 mg PO BID PRN PRN Reason: Pain, moderate (4-7) Last Admin: 06/15/17 12:01 Dose: 550 mg Ondansetron HCl (Zofran Inj) 4 mg IVP Q6H PRN PRN Reason: Nausea/Vomiting Last Admin: 06/14/17 09:49 Dose: 4 mg Tizanidine HCl (Zanaflex) 4 mg PO BID [facility] Last Admin: 06/15/17 12:00 Dose: 4 mg - Labs Labs: 06/14/17 05:45 06/14/17 05:45 PT 13.1 SECONDS (9.4-12.5) H 06/11/17 16:35 INR 1.15 (0.93-1.08) H 06/11/17 16:35 APTT 30.6 Seconds (25.1-36.5) 06/11/17 16:35 Attending/Attestation - Attestation I have personally seen and examined this patient.: Yes I have fully participated in the care of the patient.: Yes I have reviewed all pertinent clinical information, including history, physical exam and plan: Yes
[2017-06-15] MEDS: Aspirin 325 mg EC Tablets PO SCH (12:01)
[2017-06-15] MEDS: Magnesium Oxide 400 mg Tab UD PO SCH (12:01)
[2017-06-15] MEDS: cefTRIAXone 1 gm 1 GM/100 ML BAG IVPB SCH (12:02)
[2017-06-15] MEDS: Azithromycin 500MG/NS 250ml 500 MG/250 ML BAG IVPB SCH (12:03)
[2017-06-15] MEDS ORDERED: Sodium Chloride 0.9% 1,000 ML IV SCH (18:30)
[2017-06-15 18:31] VITALS: BP 68/55; PULSE 71
[2017-06-15] MEDS: Sodium Chloride 0.9% 250 ML IV SCH ×2 (18:34→22:00)
[2017-06-15 19:52] VITALS: RESP 16; TEMP 98.4; O2SAT 98
--- NOTE | 2017-06-16 05:36 | DS ---
HISTORY OF PRESENT ILLNESS: I saw her resting comfortably in bed. She is doing a lot better. She started eating. She feels better than yesterday with therapy, but she needs it. She is on Naprosyn, Catapres, Cozaar, Ecotrin, Lidoderm, Lopressor, magnesium oxide, Neurontin, Norvasc, Rocephin, Sandimmune, Xopenex, Zanaflex, azithromycin, Zofran. She is here for pneumonia. I am hoping to get her to [facility] or [facility] or [facility]; probably [facility], she is at [facility]. PHYSICAL EXAMINATION: GENERAL: Very alert, comfortable, better than yesterday. VITAL SIGNS: She has a 97.3 temperature, 87 pulse, 134/70 blood pressure, 92% O2 saturation on room air. HEAD: Atraumatic, normocephalic. HEART: Regular rate. LUNGS: Decreased breath sounds, clear to auscultation. ABDOMEN: Soft. EXTREMITIES: No edema, but she is kind of contorted, and increased kyphosis. LABORATORY DATA: She had 11.3 white count, 13.1 hemoglobin, 40.6 hematocrit, with 285 platelets. Sodium 142, potassium 4.4, BUN 16, creatinine 0.8, GFR is greater than 60, sugar is 80, calcium 10.3, total bili is 0.8. AST is 29, ALT is 36, alk phos 77, total protein is 6.6, TSH is 0.13. ASSESSMENT AND PLAN: We will repeat the TSH at the [facility], probably she will get there today for subacute rehab, and then she can go back to the [facility] afterwards. Jeffry Carrasquillo DO
--- NOTE | 2017-06-16 12:34 | CON ---
DATE: 06/12/2017 NEUROLOGY CONSULTATION CHIEF COMPLAINT: Neck pain. HISTORY OF PRESENT ILLNESS: This is an 81-year-old woman with past medical history of dementia, history of kidney transplant, on cephalosporin, hypertension, who presented from alf because of weakness and poor p.o. intake and found to have a left lower lobe pneumonia, which is currently on antibiotics. I was consulted for neck pain and neck weakness and right shoulder pain. She does have some right rotator cuff tendinitis on shoulder x-ray as well as moderate to severe degenerative changes as well as degenerative changes moderate to severe in her cervical area with strain of the cervical muscles indicating muscle spasm. Her CAT scan of head showed no acute intracranial abnormality. Currently, she is painful to lift her head up due to severe neck pain and right shoulder pain. At this time, we will recommend her to be on tizanidine 4 mg p.o. b.i.d. and recommend physical therapy evaluation. ALLERGIES: NO KNOWN DRUG ALLERGIES. PAST MEDICAL HISTORY: Dementia, history of kidney transplant, hypertension and arthritis. REVIEW OF SYSTEMS: Fourteen-point review of systems is negative except as in the HPI. FAMILY HISTORY: Noncontributory. SOCIAL HISTORY: No illicit drug use, smoking or EtOH abuse. MEDICATIONS: Reviewed by nurse reconciliation sheet. PHYSICAL EXAMINATION: VITAL SIGNS: Temperature afebrile, pulse rate of 84, blood pressure 118/62, respiratory rate of 18, oxygen saturation 95% by room air. GENERAL: The patient is sitting up in bed, in no acute distress except for neck pain. NECK: Cervical muscle tightness present throughout the cervical muscles. HEENT: Extraocular muscles intact. PERRLA. HEART: S1, S2. Normal rate and rhythm. No murmurs, rubs or gallops. ABDOMEN: Soft, nontender and nondistended. Bowel sounds are present. EXTREMITIES: No clubbing. No cyanosis. Peripheral pulses 2+ felt bilaterally. NEUROLOGIC: The patient is in severe neck pain, has cervical muscle spasm. Otherwise, A and O x2. Recall after 5 minutes is 0 out of 3. Poor attention span. Slow thought process. Cranial nerves II through XII intact. Motor exam, moves all extremities equally, has mild limitation of the right shoulder due to right rotator cuff tendinitis. Motor exam: Moves all extremities equally. Sensory exam: Decreased light touch and pinprick up to the calves bilaterally. Decreased vibration of the toes. DTRs are 1+ throughout. Coordination: Fehrgu-ha-kyry intact. Gait is deferred for now. LABORATORY DATA: Sodium is 144, potassium 3.8, chloride 113, carbon dioxide 20, BUN of 18, creatinine 0.9, random glucose of 110. ASSESSMENT AND PLAN: This is an 81-year-old woman with history of dementia, history kidney transplant, on cyclosporin, history of arthritis, who came in with poor p.o. intake and generalized weakness. Found to have a left lower lobe pneumonia on chest x-ray, on antibiotics. I was consulted for neck pain and difficulty in lifting the neck and right shoulder pain. Her neck pain is more of a severe cervicalgia with underlying musculoskeletal component. There is no evidence of myopathy on examination and her right shoulder pain is secondary to right shoulder rotator cuff tendinitis. At this time, recommend, 1. Physical therapy, , cervical muscle stretching as well as right shoulder therapy. 2. Tizanidine 4 mg p.o. b.i.d. for muscle relaxant to reduce the pain. 3. Continue with gabapentin 200 mg p.o. at bedtime for neuropathic relief. 4. Will benefit from an orthopedic consult in regards to her rotator cuff tendinitis and could consider Medrol Dosepak as per primary medical doctor. Once again, thank you for this consult. Rachid Soto MD
== END 2017-06-15 23:30 | DRG 193 ==
LOC: ED 15:40 → ERH 18:04 → 3RSO 21:58
PROVIDERS: ADMIT Family Medicine; ATTEND Family Medicine
PROC: 3E0F7GC Introduction of Other Therapeutic Substance into Respiratory Tract, Via Natural or Artificial Opening (ICD-10-PCS; principal; 2017-06-12)
DX: J18.9 Pneumonia, unspecified organism (principal); G93.40 Encephalopathy, unspecified; I25.9 Chronic ischemic heart disease, unspecified; Z94.0 Kidney transplant status; F03.90 Unspecified dementia, unspecified severity, without behavioral disturbance, psychotic disturbance, mood disturbance, and anxiety; J98.01 Acute bronchospasm; I73.9 Peripheral vascular disease, unspecified; M43.12 Spondylolisthesis, cervical region; M81.0 Age-related osteoporosis without current pathological fracture; I10 Essential (primary) hypertension; M75.31 Calcific tendinitis of right shoulder; Z66 Do not resuscitate; Z79.82 Long term (current) use of aspirin; Z79.899 Other long term (current) drug therapy